=== PATIENT | male | born 1960 | race African-American/Black ===

== ENCOUNTER 2021-12-15 19:00 | Observation (INO) | payer OTHER ==
[2021-12-15 19:39] VITALS: BMI 23.0
[2021-12-15 20:29] LABS: BASO % 0.1 % (0-2.0); HEMATOCRIT 40.6 % (35.4-49); HEMOGLOBIN 13.3 GM/dL (11.7-16.9); LYMPH % 22.4 % (8-40); MCH 32.4 pg (25.7-33.7); MCHC 32.8 g/dl (32.0-35.9); MEAN CELL VOLUME 98.5 fl (80-96); MEAN PLT VOLUME 9.7 fl (7.5-11.1); NEUT % 67.5 % (42.8-82.8); PLATELET COUNT 165 10^3/uL (134-434); RBC 4.12 M/mm3 (4.00-5.60); RDW 14.9 % (11.9-15.9); WHITE BLOOD COUNT 7.3 K/mm3 (4.0-10.0)
[2021-12-15 20:50] LABS: CALCIUM 9.5 mg/dL (8.5-10.1)
[2021-12-15 20:51] LABS: ALBUMIN 3.9 g/dl (3.4-5.0); BLOOD UREA NITROGEN 21.4 mg/dL (7-18)
[2021-12-15 20:54] LABS: CREATININE 1.3 mg/dL (0.55-1.3)
[2021-12-15 20:55] LABS: TOT PROT 7.1 g/dl (6.4-8.2)
[2021-12-15 20:56] LABS: BILIRUBIN,TOTAL 0.2 mg/dL (0.2-1)
[2021-12-15] MEDS ORDERED: ACETAMINOPHEN 650 MG/20.3 ML ORAL SOLUTION (CUPS) PO STA (23:06)
[2021-12-15] MEDS ORDERED: ACETAMINOPHEN 650 MG/20.3 ML ORAL SOLUTION (CUPS) ONE (23:24)
[2021-12-16] MEDS ORDERED: ACETAMINOPHEN 325 MG TABLET (FP) PO ONE (09:27)
[2021-12-16] MEDS ORDERED: ACETAMINOPHEN 325 MG TABLET (FP) ONE ×2 (09:27→19:27)
[2021-12-16] MEDS: ENOXAPARIN NA (PORCINE) 40 MG/0.4 ML DISP.SYRIN SQ SCH (10:00)
[2021-12-16] MEDS ORDERED: ENOXAPARIN NA (PORCINE) 40 MG/0.4 ML DISP.SYRIN SQ ONE (10:12)
[2021-12-16 10:35] LABS: BASO % 0.5 % (0-2.0); EOS % 0.9 % (0-4.5); HEMATOCRIT 40.6 % (35.4-49); HEMOGLOBIN 13.1 GM/dL (11.7-16.9); LYMPH % 19.5 % (8-40); MCH 31.6 pg (25.7-33.7); MCHC 32.2 g/dl (32.0-35.9); MEAN CELL VOLUME 98.1 fl (80-96); MEAN PLT VOLUME 10.4 fl (7.5-11.1); MONO % 9.4 % (3.8-10.2); NEUT % 69.7 % (42.8-82.8); PLATELET COUNT 172 10^3/uL (134-434); RBC 4.14 M/mm3 (4.00-5.60); WHITE BLOOD COUNT 5.5 K/mm3 (4.0-10.0)
[2021-12-16 11:10] LABS: CALCIUM 9.6 mg/dL (8.5-10.1)
[2021-12-16 11:11] LABS: ALBUMIN 3.8 g/dl (3.4-5.0); BLOOD UREA NITROGEN 20.9 mg/dL (7-18)
[2021-12-16 11:14] LABS: CREATININE 1.1 mg/dL (0.55-1.3)
[2021-12-16 11:15] LABS: TOT PROT 6.9 g/dl (6.4-8.2)
[2021-12-16 11:16] LABS: BILIRUBIN,TOTAL 0.3 mg/dL (0.2-1)
[2021-12-16] MEDS: ACETAMINOPHEN 325 MG TABLET (FP) PO PRN (19:35)
[2021-12-17] MEDS ORDERED: ACETAMINOPHEN 325 MG TABLET (FP) ONE ×2 (03:03→09:39)
[2021-12-17] MEDS: ACETAMINOPHEN 325 MG TABLET (FP) PO PRN ×3 (03:07→22:24)
[2021-12-17] MEDS ORDERED: LOSARTAN POTASSIUM 50 MG TABLET PO ONE (08:19)
[2021-12-17] MEDS ORDERED: LOSARTAN POTASSIUM 50 MG TABLET ONE (09:39)
[2021-12-17] MEDS ORDERED: ENOXAPARIN NA (PORCINE) 40 MG/0.4 ML DISP.SYRIN SQ ONE (09:42)
[2021-12-17] MEDS: ENOXAPARIN NA (PORCINE) 40 MG/0.4 ML DISP.SYRIN SQ SCH (09:47)
[2021-12-18] MEDS: ACETAMINOPHEN 325 MG TABLET (FP) PO PRN ×2 (06:44→20:45)
[2021-12-18] MEDS: ENOXAPARIN NA (PORCINE) 40 MG/0.4 ML DISP.SYRIN SQ SCH (09:23)
[2021-12-18] MEDS ORDERED: LIDOCAINE 5% TOPICAL PATCH TP ONE (14:45)
[2021-12-18] MEDS: INSULIN SLIDING SCALE (NOVOLOG) 1 VIAL SQ SCH (16:42)
[2021-12-19] MEDS: ACETAMINOPHEN 325 MG TABLET (FP) PO PRN ×2 (05:39→20:06)
[2021-12-19] MEDS: metFORMIN HCL 500 MG TABLET (FP) PO SCH (06:08)
[2021-12-19 07:31] LABS: BASO % 0.7 % (0-2.0); EOS % 2.9 % (0-4.5); HEMATOCRIT 41.1 % (35.4-49); HEMOGLOBIN 13.8 GM/dL (11.7-16.9); LYMPH % 29.3 % (8-40); MCH 32.7 pg (25.7-33.7); MCHC 33.5 g/dl (32.0-35.9); MEAN CELL VOLUME 97.3 fl (80-96); MEAN PLT VOLUME 10.3 fl (7.5-11.1); MONO % 11.4 % (3.8-10.2); NEUT % 55.7 % (42.8-82.8); PLATELET COUNT 155 10^3/uL (134-434); RBC 4.22 M/mm3 (4.00-5.60); RDW 14.9 % (11.9-15.9); WHITE BLOOD COUNT 4.2 K/mm3 (4.0-10.0)
[2021-12-19] MEDS: INSULIN SLIDING SCALE (NOVOLOG) 1 VIAL SQ SCH ×2 (07:37→18:12)
[2021-12-19 08:01] LABS: CALCIUM 9.1 mg/dL (8.5-10.1)
[2021-12-19 08:02] LABS: ALBUMIN 3.5 g/dl (3.4-5.0); BLOOD UREA NITROGEN 17.4 mg/dL (7-18)
[2021-12-19 08:05] LABS: CREATININE 0.9 mg/dL (0.55-1.3)
[2021-12-19 08:08] LABS: BILIRUBIN,TOTAL 0.3 mg/dL (0.2-1); TOT PROT 6.8 g/dl (6.4-8.2)
[2021-12-19] MEDS: ENOXAPARIN NA (PORCINE) 40 MG/0.4 ML DISP.SYRIN SQ SCH (09:40)
[2021-12-19] MEDS: TAMSULOSIN HCL 0.4 MG CAP PO SCH (09:40)
[2021-12-19] MEDS: LOSARTAN POTASSIUM 50 MG TABLET PO SCH (09:40)
[2021-12-19] MEDS: HYDROCHLOROTHIAZIDE 25 MG TABLET (FP) PO SCH (09:40)
[2021-12-20] MEDS: metFORMIN HCL 500 MG TABLET (FP) PO SCH (06:44)
[2021-12-20] MEDS: INSULIN SLIDING SCALE (NOVOLOG) 1 VIAL SQ SCH ×2 (07:33→17:09)
[2021-12-20] MEDS: HYDROCHLOROTHIAZIDE 25 MG TABLET (FP) PO SCH (09:07)
[2021-12-20] MEDS: LOSARTAN POTASSIUM 50 MG TABLET PO SCH (09:07)
[2021-12-20] MEDS: TAMSULOSIN HCL 0.4 MG CAP PO SCH (09:07)
[2021-12-20] MEDS: ENOXAPARIN NA (PORCINE) 40 MG/0.4 ML DISP.SYRIN SQ SCH (09:07)
[2021-12-20] MEDS: ACETAMINOPHEN 325 MG TABLET (FP) PO PRN ×2 (12:45→18:39)
[2021-12-21 04:17] VITALS: TEMP 98.4
[2021-12-21] MEDS: INSULIN SLIDING SCALE (NOVOLOG) 1 VIAL SQ SCH (06:37)
[2021-12-21] MEDS: metFORMIN HCL 500 MG TABLET (FP) PO SCH (06:42)
[2021-12-21 08:24] VITALS: BP 136/89; PULSE 79
[2021-12-21] MEDS: LOSARTAN POTASSIUM 50 MG TABLET PO SCH (09:03)
[2021-12-21] MEDS: HYDROCHLOROTHIAZIDE 25 MG TABLET (FP) PO SCH (09:03)
[2021-12-21] MEDS: TAMSULOSIN HCL 0.4 MG CAP PO SCH (09:04)
[2021-12-21] MEDS: ENOXAPARIN NA (PORCINE) 40 MG/0.4 ML DISP.SYRIN SQ SCH (09:05)
== END 2021-12-21 10:07 | disposition home or self-care (01) ==
LOC: JER 19:00 → JERBED 21:36 → INTOOBSV 21:36 → UNDOADMOB 21:36 → JERBED 12-17 10:21 → J4W 12-17 15:57
PROVIDERS: ADMIT Internal Medicine; ATTEND Internal Medicine
PROC: 3E023GC Introduction of Other Therapeutic Substance into Muscle, Percutaneous Approach (ICD-10-PCS; principal; 2021-12-17)
DX: R55 Syncope and collapse (principal); W18.39XA Other fall on same level, initial encounter; Y93.89 Activity, other specified; Y92.89 Other specified places as the place of occurrence of the external cause; E11.9 Type 2 diabetes mellitus without complications; N40.0 Benign prostatic hyperplasia without lower urinary tract symptoms; I10 Essential (primary) hypertension
CPT/HCPCS: 36415; 70450-TC; 70498-TC; 70547-TC; 72125-TC; 80053; 80061; 80307; 82550; 82553; 82962; 83036; 83735; 84484; 85025; 93005; 93010; 93225; 93226; 93306-TC; 93880-TC; 96372; 99285-25; C9803; G0378; U0003; U0005

== ENCOUNTER 2023-01-13 11:33 | Inpatient (IN) | payer OTHER ==
[2023-01-13 13:58] LABS: BASO % 0.9 % (0-2.0); EOS % 0.6 % (0-4.5); HEMATOCRIT 36.7 % (35.4-49); HEMOGLOBIN 12.1 GM/dL (11.7-16.9); LYMPH % 11.9 % (8-40); MCH 30.9 pg (25.7-33.7); MCHC 32.9 g/dl (32.0-35.9); MEAN CELL VOLUME 93.9 fl (80-96); MEAN PLT VOLUME 10.6 fl (7.5-11.1); NEUT % 75.6 % (42.8-82.8); PLATELET COUNT 319 10^3/uL (134-434); RBC 3.91 M/mm3 (4.00-5.60); RDW 16.7 % (11.9-15.9); WHITE BLOOD COUNT 6.4 K/mm3 (4.0-10.0)
[2023-01-13 14:08] LABS: INR 1.14 (0.83-1.09); PROTHROMBIN TIME (PATIENT) 13.2 SEC (9.7-13.0)
[2023-01-13 14:24] LABS: SODIUM 128 mmol/L (136-145)
[2023-01-13 14:26] LABS: ALBUMIN 2.8 g/dl (3.4-5.0); CALCIUM 8.9 mg/dL (8.5-10.1); CO2 25 mmol/L (21-32); GLUCOSE,RANDOM 137 mg/dL (74-106)
[2023-01-13 14:27] LABS: LIPASE 109 U/L (73-393)
[2023-01-13 14:30] LABS: CREATININE 0.9 mg/dL (0.55-1.3)
[2023-01-13 14:31] LABS: BILIRUBIN,TOTAL 3.4 mg/dL (0.2-1)
[2023-01-13 14:33] LABS: ALK PHOS 980 U/L (45-117)
[2023-01-13 14:35] LABS: N-TERMINAL BNP 605.5 pg/ml (5-125)
[2023-01-13 14:40] LABS: ANION GAP 7 MMOL/L (8-16); BLOOD UREA NITROGEN 16.3 mg/dL (7-18); CHLORIDE 96 mmol/L (98-107); SGOT/AST 144 U/L (15-37); SGPT/ALT 26 U/L (13-61)
[2023-01-13 19:42] LABS: CHLORIDE 99 mmol/L (98-107); SODIUM 132 mmol/L (136-145)
[2023-01-13 19:44] LABS: ALBUMIN 2.7 g/dl (3.4-5.0); BLOOD UREA NITROGEN 14.2 mg/dL (7-18); CALCIUM 8.9 mg/dL (8.5-10.1); CO2 22 mmol/L (21-32); GLUCOSE,RANDOM 84 mg/dL (74-106)
[2023-01-13 19:48] LABS: CREATININE 0.8 mg/dL (0.55-1.3); SGOT/AST 132 U/L (15-37)
[2023-01-13 19:50] LABS: TOT PROT 6.7 g/dl (6.4-8.2)
[2023-01-13 19:54] LABS: ALK PHOS 930 U/L (45-117); ANION GAP 11 MMOL/L (8-16); SGPT/ALT 22 U/L (13-61)
[2023-01-13] MEDS ORDERED: morphine CARPU-JECT 2 MG/1 ML DISP.SYRIN IVPUSH ONE (21:09)
[2023-01-13] MEDS ORDERED: ONDANSETRON 4 MG TABLET PO ONE (21:16)
[2023-01-14] MEDS ORDERED: DEXTROSE 5%-0.45% SALINE 1,000 ML IV SCH (10:00)
[2023-01-14] MEDS: TAMSULOSIN HCL 0.4 MG CAP PO SCH (11:26)
[2023-01-14] MEDS: ENOXAPARIN NA (PORCINE) 40 MG/0.4 ML DISP.SYRIN SQ SCH (11:26)
[2023-01-14] MEDS: ASPIRIN COATED 81 MG TABLET.EC PO SCH (11:27)
[2023-01-14] MEDS: INSULIN SLIDING SCALE (NOVOLOG) 1 VIAL SQ SCH ×3 (12:14→23:02)
[2023-01-14 12:37] LABS: BASO % 0.3 % (0-2.0); EOS % 0.5 % (0-4.5); HEMATOCRIT 36.5 % (35.4-49); HEMOGLOBIN 12.1 GM/dL (11.7-16.9); LYMPH % 8.2 % (8-40); MCH 31.4 pg (25.7-33.7); MCHC 33.3 g/dl (32.0-35.9); MEAN CELL VOLUME 94.2 fl (80-96); MEAN PLT VOLUME 9.7 fl (7.5-11.1); MONO % 10.8 % (3.8-10.2); NEUT % 80.2 % (42.8-82.8); PLATELET COUNT 307 10^3/uL (134-434); RBC 3.87 M/mm3 (4.00-5.60); RDW 16.6 % (11.9-15.9)
[2023-01-14 13:00] LABS: ALBUMIN 2.8 g/dl (3.4-5.0); BLOOD UREA NITROGEN 14.8 mg/dL (7-18); CALCIUM 9.4 mg/dL (8.5-10.1)
[2023-01-14 13:04] LABS: CREATININE 0.7 mg/dL (0.55-1.3)
[2023-01-14 13:06] LABS: BILIRUBIN,TOTAL 3.4 mg/dL (0.2-1); TOT PROT 6.2 g/dl (6.4-8.2)
[2023-01-14] MEDS: DEXTROSE 5%-NORMAL SALINE 1,000 ML IV SCH (14:00)
[2023-01-15] MEDS: DEXTROSE 5%-NORMAL SALINE 1,000 ML IV SCH ×2 (00:16→17:47)
[2023-01-15] MEDS: ACETAMINOPHEN 325 MG TABLET (FP) PO PRN ×2 (00:18→09:56)
[2023-01-15] MEDS: INSULIN SLIDING SCALE (NOVOLOG) 1 VIAL SQ SCH ×3 (06:59→17:48)
[2023-01-15 09:48] LABS: BASO % 0.5 % (0-2.0); EOS % 1.5 % (0-4.5); HEMATOCRIT 35.1 % (35.4-49); HEMOGLOBIN 11.4 GM/dL (11.7-16.9); LYMPH % 15.9 % (8-40); MCH 30.8 pg (25.7-33.7); MCHC 32.6 g/dl (32.0-35.9); MEAN CELL VOLUME 94.5 fl (80-96); MEAN PLT VOLUME 10.4 fl (7.5-11.1); MONO % 16.3 % (3.8-10.2); NEUT % 65.8 % (42.8-82.8); PLATELET COUNT 319 10^3/uL (134-434); RBC 3.71 M/mm3 (4.00-5.60); RDW 16.7 % (11.9-15.9); WHITE BLOOD COUNT 6.4 K/mm3 (4.0-10.0)
[2023-01-15] MEDS: TAMSULOSIN HCL 0.4 MG CAP PO SCH (09:57)
[2023-01-15] MEDS: ASPIRIN COATED 81 MG TABLET.EC PO SCH (09:57)
[2023-01-15] MEDS: ENOXAPARIN NA (PORCINE) 40 MG/0.4 ML DISP.SYRIN SQ SCH (09:57)
[2023-01-15 10:15] LABS: BLOOD UREA NITROGEN 10.8 mg/dL (7-18); CALCIUM 8.8 mg/dL (8.5-10.1)
[2023-01-15 10:17] LABS: ALBUMIN 2.4 g/dl (3.4-5.0)
[2023-01-15 10:20] LABS: BILIRUBIN,TOTAL 3.3 mg/dL (0.2-1); CREATININE 0.7 mg/dL (0.55-1.3); TOT PROT 5.5 g/dl (6.4-8.2)
[2023-01-15] MEDS: [UNRECOGNIZED DRUG - OTHER] PO SCH (11:58)
[2023-01-16] MEDS: INSULIN SLIDING SCALE (NOVOLOG) 1 VIAL SQ SCH ×5 (00:12→21:39)
[2023-01-16] MEDS: DEXTROSE 5%-NORMAL SALINE 1,000 ML IV SCH ×2 (00:16→16:29)
[2023-01-16 09:08] LABS: HEMATOCRIT 35.2 % (35.4-49); HEMOGLOBIN 11.4 GM/dL (11.7-16.9); MCH 30.9 pg (25.7-33.7); MCHC 32.5 g/dl (32.0-35.9); MEAN CELL VOLUME 95.2 fl (80-96); MEAN PLT VOLUME 10.6 fl (7.5-11.1); PLATELET COUNT 319 10^3/uL (134-434); RDW 16.5 % (11.9-15.9); WHITE BLOOD COUNT 5.8 K/mm3 (4.0-10.0)
[2023-01-16] MEDS: ALBUMIN HUMAN 25% 12.5 GM/50 ML VIAL IV SCH ×4 (09:29→11:25)
[2023-01-16 09:32] LABS: CALCIUM 8.6 mg/dL (8.5-10.1)
[2023-01-16 09:34] LABS: ALBUMIN 2.3 g/dl (3.4-5.0); BLOOD UREA NITROGEN 9.6 mg/dL (7-18)
[2023-01-16] MEDS: ACETAMINOPHEN 325 MG TABLET (FP) PO PRN (09:36)
[2023-01-16] MEDS: TAMSULOSIN HCL 0.4 MG CAP PO SCH (09:36)
[2023-01-16] MEDS: [UNRECOGNIZED DRUG - OTHER] PO SCH (09:36)
[2023-01-16 09:37] LABS: CREATININE 0.6 mg/dL (0.55-1.3)
[2023-01-16 09:38] LABS: TOT PROT 5.6 g/dl (6.4-8.2)
[2023-01-16] MEDS: ASPIRIN COATED 81 MG TABLET.EC PO SCH (10:43)
[2023-01-16] MEDS: ENOXAPARIN NA (PORCINE) 40 MG/0.4 ML DISP.SYRIN SQ SCH (10:44)
[2023-01-16] MEDS: POLYETHYLENE GLYCOL (HEALTHYLAX) 3350 17 GM PACKET PO SCH (21:39)
[2023-01-17] MEDS: DEXTROSE 5%-NORMAL SALINE 1,000 ML IV SCH ×2 (00:55→17:58)
[2023-01-17] MEDS: ACETAMINOPHEN 325 MG TABLET (FP) PO PRN ×3 (02:55→22:27)
[2023-01-17] MEDS: INSULIN SLIDING SCALE (NOVOLOG) 1 VIAL SQ SCH ×4 (06:05→22:22)
[2023-01-17 08:45] LABS: BASO % 0.9 % (0-2.0); EOS % 2.8 % (0-4.5); HEMATOCRIT 34.1 % (35.4-49); HEMOGLOBIN 11.2 GM/dL (11.7-16.9); LYMPH % 16.6 % (8-40); MCH 31.2 pg (25.7-33.7); MEAN CELL VOLUME 94.4 fl (80-96); MEAN PLT VOLUME 10.4 fl (7.5-11.1); MONO % 14.4 % (3.8-10.2); NEUT % 65.3 % (42.8-82.8); PLATELET COUNT 320 10^3/uL (134-434); RBC 3.61 M/mm3 (4.00-5.60); RDW 16.8 % (11.9-15.9); WHITE BLOOD COUNT 6.1 K/mm3 (4.0-10.0)
[2023-01-17 09:12] LABS: ALBUMIN 2.8 g/dl (3.4-5.0); BLOOD UREA NITROGEN 8.5 mg/dL (7-18); CALCIUM 9.2 mg/dL (8.5-10.1); CREATININE 0.6 mg/dL (0.55-1.3)
[2023-01-17 09:14] LABS: TOT PROT 5.7 g/dl (6.4-8.2)
[2023-01-17 09:20] LABS: BILIRUBIN,TOTAL 3.3 mg/dL (0.2-1)
[2023-01-17] MEDS: LACTULOSE 20 GM/30 ML UDC (FOR ORAL USE ONLY) PO SCH (10:43)
[2023-01-17] MEDS: ASPIRIN COATED 81 MG TABLET.EC PO SCH (10:44)
[2023-01-17] MEDS: ENOXAPARIN NA (PORCINE) 40 MG/0.4 ML DISP.SYRIN SQ SCH (10:44)
[2023-01-17] MEDS: POLYETHYLENE GLYCOL (HEALTHYLAX) 3350 17 GM PACKET PO SCH ×2 (10:44→22:18)
[2023-01-17] MEDS: TAMSULOSIN HCL 0.4 MG CAP PO SCH (10:44)
[2023-01-17] MEDS: [UNRECOGNIZED DRUG - OTHER] PO SCH (10:46)
[2023-01-17 13:47] VITALS: BMI 23.7
[2023-01-18] MEDS: INSULIN SLIDING SCALE (NOVOLOG) 1 VIAL SQ SCH ×4 (06:12→21:47)
[2023-01-18] MEDS: LACTULOSE 20 GM/30 ML UDC (FOR ORAL USE ONLY) PO SCH (13:37)
[2023-01-18] MEDS: ENOXAPARIN NA (PORCINE) 40 MG/0.4 ML DISP.SYRIN SQ SCH (13:37)
[2023-01-18] MEDS: ASPIRIN COATED 81 MG TABLET.EC PO SCH (13:37)
[2023-01-18] MEDS: TAMSULOSIN HCL 0.4 MG CAP PO SCH (13:37)
[2023-01-18] MEDS: [UNRECOGNIZED DRUG - OTHER] PO SCH (13:38)
[2023-01-18] MEDS: POLYETHYLENE GLYCOL (HEALTHYLAX) 3350 17 GM PACKET PO SCH ×2 (13:38→21:37)
[2023-01-18] MEDS: ACETAMINOPHEN 325 MG TABLET (FP) PO PRN (13:47)
[2023-01-18] MEDS: DEXTROSE 5%-NORMAL SALINE 1,000 ML IV SCH ×2 (15:35→20:33)
[2023-01-19] MEDS: INSULIN SLIDING SCALE (NOVOLOG) 1 VIAL SQ SCH ×4 (06:01→22:19)
[2023-01-19 08:01] LABS: BASO % 0.7 % (0-2.0); EOS % 1.2 % (0-4.5); HEMATOCRIT 36.4 % (35.4-49); LYMPH % 15.8 % (8-40); MCH 31.4 pg (25.7-33.7); MEAN CELL VOLUME 95.1 fl (80-96); MEAN PLT VOLUME 10.7 fl (7.5-11.1); MONO % 12.6 % (3.8-10.2); NEUT % 69.7 % (42.8-82.8); PLATELET COUNT 307 10^3/uL (134-434); RBC 3.83 M/mm3 (4.00-5.60); RDW 16.8 % (11.9-15.9)
[2023-01-19 08:22] LABS: CALCIUM 9.2 mg/dL (8.5-10.1)
[2023-01-19 08:23] LABS: ALBUMIN 2.8 g/dl (3.4-5.0); BLOOD UREA NITROGEN 7.7 mg/dL (7-18)
[2023-01-19 08:27] LABS: BILIRUBIN,TOTAL 3.1 mg/dL (0.2-1); CREATININE 0.6 mg/dL (0.55-1.3); TOT PROT 5.9 g/dl (6.4-8.2)
[2023-01-19] MEDS: ACETAMINOPHEN 325 MG TABLET (FP) PO PRN ×2 (08:58→20:09)
[2023-01-19] MEDS: TAMSULOSIN HCL 0.4 MG CAP PO SCH (08:59)
[2023-01-19] MEDS: ENOXAPARIN NA (PORCINE) 40 MG/0.4 ML DISP.SYRIN SQ SCH (09:01)
[2023-01-19] MEDS: POLYETHYLENE GLYCOL (HEALTHYLAX) 3350 17 GM PACKET PO SCH ×2 (09:01→22:19)
[2023-01-19] MEDS: ASPIRIN COATED 81 MG TABLET.EC PO SCH (09:01)
[2023-01-19] MEDS: LACTULOSE 20 GM/30 ML UDC (FOR ORAL USE ONLY) PO SCH (09:01)
[2023-01-19] MEDS: [UNRECOGNIZED DRUG - OTHER] PO SCH (09:02)
[2023-01-19] MEDS: PANTOPRAZOLE 40 MG TABLET PO SCH (10:22)
[2023-01-19] MEDS: SPIRONOLACTONE 25 MG TABLET PO SCH (16:51)
[2023-01-20] MEDS: INSULIN SLIDING SCALE (NOVOLOG) 1 VIAL SQ SCH ×4 (06:43→21:35)
[2023-01-20 09:59] LABS: BASO % 0.5 % (0-2.0); EOS % 1.3 % (0-4.5); HEMATOCRIT 33.2 % (35.4-49); HEMOGLOBIN 10.8 GM/dL (11.7-16.9); MCH 30.5 pg (25.7-33.7); MCHC 32.4 g/dl (32.0-35.9); MEAN CELL VOLUME 94.1 fl (80-96); MEAN PLT VOLUME 10.9 fl (7.5-11.1); MONO % 13.6 % (3.8-10.2); NEUT % 69.6 % (42.8-82.8); PLATELET COUNT 303 10^3/uL (134-434); RBC 3.53 M/mm3 (4.00-5.60); RDW 16.8 % (11.9-15.9); WHITE BLOOD COUNT 7.8 K/mm3 (4.0-10.0)
[2023-01-20] MEDS ORDERED: SPIRONOLACTONE 25 MG TABLET PO SCH (10:00)
[2023-01-20] MEDS: POLYETHYLENE GLYCOL (HEALTHYLAX) 3350 17 GM PACKET PO SCH ×2 (10:05→21:27)
[2023-01-20] MEDS: ASPIRIN COATED 81 MG TABLET.EC PO SCH (10:05)
[2023-01-20] MEDS: ENOXAPARIN NA (PORCINE) 40 MG/0.4 ML DISP.SYRIN SQ SCH (10:05)
[2023-01-20] MEDS: LACTULOSE 20 GM/30 ML UDC (FOR ORAL USE ONLY) PO SCH (10:05)
[2023-01-20] MEDS: SPIRONOLACTONE 25 MG TABLET PO SCH (10:05)
[2023-01-20] MEDS: PANTOPRAZOLE 40 MG TABLET PO SCH (10:05)
[2023-01-20] MEDS: TAMSULOSIN HCL 0.4 MG CAP PO SCH (10:05)
[2023-01-20] MEDS: [UNRECOGNIZED DRUG - OTHER] PO SCH (10:07)
[2023-01-20] MEDS: ACETAMINOPHEN 325 MG TABLET (FP) PO PRN ×2 (10:11→19:59)
[2023-01-20 10:14] LABS: CALCIUM 9.3 mg/dL (8.5-10.1)
[2023-01-20 10:15] LABS: ALBUMIN 2.6 g/dl (3.4-5.0); BLOOD UREA NITROGEN 11.2 mg/dL (7-18)
[2023-01-20 10:18] LABS: CREATININE 0.5 mg/dL (0.55-1.3)
[2023-01-20 10:19] LABS: TOT PROT 5.6 g/dl (6.4-8.2)
[2023-01-20 10:20] LABS: BILIRUBIN,TOTAL 3.3 mg/dL (0.2-1)
[2023-01-20] MEDS ORDERED: BISACODYL 5 MG TABLET.DR (FP) PO ONE (14:00)
[2023-01-20] MEDS ORDERED: POLYETHYLENE GLYCOL 3350 255 GM BTL PO ONE (16:00)
[2023-01-21] MEDS: ACETAMINOPHEN 325 MG TABLET (FP) PO PRN ×3 (06:00→22:22)
[2023-01-21] MEDS: INSULIN SLIDING SCALE (NOVOLOG) 1 VIAL SQ SCH ×4 (06:03→22:24)
[2023-01-21] MEDS: LACTULOSE 20 GM/30 ML UDC (FOR ORAL USE ONLY) PO SCH (09:22)
[2023-01-21] MEDS: SPIRONOLACTONE 25 MG TABLET PO SCH (09:22)
[2023-01-21] MEDS: ASPIRIN COATED 81 MG TABLET.EC PO SCH (09:22)
[2023-01-21] MEDS: TAMSULOSIN HCL 0.4 MG CAP PO SCH (09:22)
[2023-01-21] MEDS: PANTOPRAZOLE 40 MG TABLET PO SCH (09:22)
[2023-01-21] MEDS: POLYETHYLENE GLYCOL (HEALTHYLAX) 3350 17 GM PACKET PO SCH ×2 (09:27→22:21)
[2023-01-21] MEDS: [UNRECOGNIZED DRUG - OTHER] PO SCH (09:28)
[2023-01-21] MEDS ORDERED: SODIUM PHOSPHATE/NA BIPHOS 133 ML ENEMA RC ONE (10:00)
[2023-01-21] MEDS ORDERED: TETRACAINE/BENZOCAINE/BUTAMBEN 20 GM SPR TP ONE (12:11)
[2023-01-22] MEDS: INSULIN SLIDING SCALE (NOVOLOG) 1 VIAL SQ SCH ×4 (06:34→22:02)
[2023-01-22 08:05] LABS: ALBUMIN 2.6 g/dl (3.4-5.0); CALCIUM 9.6 mg/dL (8.5-10.1)
[2023-01-22 08:06] LABS: BLOOD UREA NITROGEN 10.9 mg/dL (7-18)
[2023-01-22 08:09] LABS: CREATININE 0.6 mg/dL (0.55-1.3)
[2023-01-22 08:10] LABS: TOT PROT 5.8 g/dl (6.4-8.2)
[2023-01-22 08:11] LABS: BILIRUBIN,TOTAL 3.5 mg/dL (0.2-1)
[2023-01-22 08:26] LABS: HEMATOCRIT 33.5 % (35.4-49); HEMOGLOBIN 11.1 GM/dL (11.7-16.9); MCH 31.1 pg (25.7-33.7); MCHC 33.1 g/dl (32.0-35.9); MEAN PLT VOLUME 10.6 fl (7.5-11.1); PLATELET COUNT 295 10^3/uL (134-434); RBC 3.56 M/mm3 (4.00-5.60); WHITE BLOOD COUNT 6.3 K/mm3 (4.0-10.0)
[2023-01-22] MEDS: PANTOPRAZOLE 40 MG TABLET PO SCH (09:58)
[2023-01-22] MEDS: TAMSULOSIN HCL 0.4 MG CAP PO SCH (09:58)
[2023-01-22] MEDS: ACETAMINOPHEN 325 MG TABLET (FP) PO PRN ×3 (09:58→22:45)
[2023-01-22] MEDS: SPIRONOLACTONE 25 MG TABLET PO SCH (09:58)
[2023-01-22] MEDS: ASPIRIN COATED 81 MG TABLET.EC PO SCH (09:58)
[2023-01-22] MEDS: LACTULOSE 20 GM/30 ML UDC (FOR ORAL USE ONLY) PO SCH (09:59)
[2023-01-22] MEDS: POLYETHYLENE GLYCOL (HEALTHYLAX) 3350 17 GM PACKET PO SCH ×3 (09:59→21:29)
[2023-01-22] MEDS: [UNRECOGNIZED DRUG - OTHER] PO SCH (10:00)
[2023-01-22] MEDS: ALBUMIN HUMAN 25% 12.5 GM/50 ML VIAL IV SCH ×4 (13:11→15:06)
[2023-01-23] MEDS ORDERED: INSULIN (NOVOLOG) ASPART 100 UNITS/ML 10ML VIAL ONE (06:38)
[2023-01-23] MEDS: INSULIN SLIDING SCALE (NOVOLOG) 1 VIAL SQ SCH ×4 (06:42→23:17)
[2023-01-23] MEDS: LACTULOSE 20 GM/30 ML UDC (FOR ORAL USE ONLY) PO SCH (09:05)
[2023-01-23] MEDS: TAMSULOSIN HCL 0.4 MG CAP PO SCH (09:06)
[2023-01-23] MEDS: SPIRONOLACTONE 25 MG TABLET PO SCH (09:06)
[2023-01-23] MEDS: PANTOPRAZOLE 40 MG TABLET PO SCH (09:06)
[2023-01-23] MEDS: ASPIRIN COATED 81 MG TABLET.EC PO SCH (09:07)
[2023-01-23] MEDS: ACETAMINOPHEN 325 MG TABLET (FP) PO PRN ×2 (09:13→22:36)
[2023-01-23] MEDS: ALBUMIN HUMAN 25% 12.5 GM/50 ML VIAL IV SCH ×3 (09:23→12:01)
[2023-01-23 10:08] LABS: ALBUMIN 2.9 g/dl (3.4-5.0); BLOOD UREA NITROGEN 9.3 mg/dL (7-18); CALCIUM 10.2 mg/dL (8.5-10.1)
[2023-01-23 10:12] LABS: CREATININE 0.5 mg/dL (0.55-1.3)
[2023-01-23 10:14] LABS: BILIRUBIN,TOTAL 3.4 mg/dL (0.2-1); TOT PROT 6.4 g/dl (6.4-8.2)
[2023-01-23] MEDS: POLYETHYLENE GLYCOL (HEALTHYLAX) 3350 17 GM PACKET PO SCH ×2 (12:03→22:37)
[2023-01-23] MEDS: [UNRECOGNIZED DRUG - OTHER] PO SCH (12:03)
[2023-01-23 17:05] LABS: BF WBC & OTHER NUCLEATED CELLS 347 /mm3
[2023-01-23 17:13] LABS: BODY FLUID MACROPHAGES 3 %; BODY FLUID MESOTHELIAL 1 %; BODY FLUID MONOCYTE 58 %
[2023-01-24] MEDS: ACETAMINOPHEN 325 MG TABLET (FP) PO PRN (09:21)
[2023-01-24] MEDS: ASPIRIN COATED 81 MG TABLET.EC PO SCH (09:22)
[2023-01-24] MEDS: POLYETHYLENE GLYCOL (HEALTHYLAX) 3350 17 GM PACKET PO SCH (09:22)
[2023-01-24] MEDS: LACTULOSE 20 GM/30 ML UDC (FOR ORAL USE ONLY) PO SCH (09:22)
[2023-01-24] MEDS: PANTOPRAZOLE 40 MG TABLET PO SCH (09:22)
[2023-01-24] MEDS: SPIRONOLACTONE 25 MG TABLET PO SCH (09:22)
[2023-01-24] MEDS: TAMSULOSIN HCL 0.4 MG CAP PO SCH (09:22)
[2023-01-24] MEDS: [UNRECOGNIZED DRUG - OTHER] PO SCH (09:40)
[2023-01-24 14:26] VITALS: BP 138/83; PULSE 93; RESP 20; TEMP 98
== END 2023-01-24 16:36 | disposition home or self-care (01) | DRG 281 ==
LOC: JER 11:33 → EDBD 19:00 → JERBED 19:00 → J8W 01-14 00:19
PROVIDERS: ADMIT Internal Medicine; ATTEND Internal Medicine
PROC: 0DBP8ZX Excision of Rectum, Via Natural or Artificial Opening Endoscopic, Diagnostic (ICD-10-PCS; 2023-01-21)
PROC: 0DB68ZX Excision of Stomach, Via Natural or Artificial Opening Endoscopic, Diagnostic (ICD-10-PCS; 2023-01-21)
PROC: 0W9G3ZZ Drainage of Peritoneal Cavity, Percutaneous Approach (ICD-10-PCS; principal; 2023-01-23)
DX: C78.7 Secondary malignant neoplasm of liver and intrahepatic bile duct (principal); C79.51 Secondary malignant neoplasm of bone; R18.8 Other ascites; E87.1 Hypo-osmolality and hyponatremia; E87.5 Hyperkalemia; R17 Unspecified jaundice; C61 Malignant neoplasm of prostate; E11.9 Type 2 diabetes mellitus without complications; I10 Essential (primary) hypertension; K59.00 Constipation, unspecified; B96.81 Helicobacter pylori [H. pylori] as the cause of diseases classified elsewhere; K29.50 Unspecified chronic gastritis without bleeding; K57.90 Diverticulosis of intestine, part unspecified, without perforation or abscess without bleeding; K62.1 Rectal polyp
CPT/HCPCS: 0241U-QW; 36415; 74177-TC; 76604; 76705-TC; 76775-TC; 76856-TC; 76942-TC; 80053; 82105; 82140; 82150; 82272; 82378; 82465; 82945; 82962; 83615; 83690; 83880; 83986; 84153; 84157; 84478; 85025; 85027; 85610; 85730; 86705; 86709; 86803; 87070; 87075; 87102; 87116; 87205; 87206; 87210; 87340; 87517; 88108; 88305-TC; 93005; 93010; 93308; 99285-25; P9047; Q9967

== ENCOUNTER 2023-02-22 16:50 | Inpatient (IN) | payer OTHER ==
[2023-02-22] MEDS ORDERED: LIDOCAINE HCL 1%, 10 MG/ML (10ML VIAL) MDV ONE (18:10)
[2023-02-22 18:35] LABS: VENOUS BASE EXCESS -1.1 mmol/L (-2-2); VENOUS O2 SATURATION 66.7 % (70-80); VENOUS PH 7.405 (7.310-7.410)
[2023-02-22] MEDS ORDERED: CEFTRIAXONE 1,000 MG in DEXTROSE 5%-WATER - 50 ML IVPB ONE (18:35)
[2023-02-22 18:39] LABS: HEMATOCRIT 35.6 % (35.4-49); HEMOGLOBIN 12.2 GM/dL (11.7-16.9); MCH 30.2 pg (25.7-33.7); MCHC 34.4 g/dl (32.0-35.9); MEAN CELL VOLUME 87.9 fl (80-96); MEAN PLT VOLUME 9.7 fl (7.5-11.1); PLATELET COUNT 398 10^3/uL (134-434); RBC 4.05 M/mm3 (4.00-5.60); RDW 19.3 % (11.9-15.9); WHITE BLOOD COUNT 8.6 K/mm3 (4.0-10.0)
[2023-02-22] MEDS ORDERED: CEFTRIAXONE 1 GM/50 ML BAG ONE (18:47)
[2023-02-22 18:48] LABS: INR 1.8 (0.83-1.09); PROTHROMBIN TIME (PATIENT) 20.8 SEC (9.7-13.0)
[2023-02-22 18:52] LABS: ACTIVATED PTT 41.8 SECONDS (25.2-36.5)
[2023-02-22 18:57] LABS: CHLORIDE 74 mmol/L (98-107)
[2023-02-22 19:00] LABS: ALBUMIN 2.4 g/dl (3.4-5.0); BLOOD UREA NITROGEN 21.3 mg/dL (7-18); CALCIUM 8.7 mg/dL (8.5-10.1); CO2 22 mmol/L (21-32); GLUCOSE,RANDOM 100 mg/dL (74-106)
[2023-02-22 19:02] LABS: CREATININE 1.6 mg/dL (0.55-1.3)
[2023-02-22 19:04] LABS: BILIRUBIN,TOTAL 7.3 mg/dL (0.2-1); SGOT/AST 469 U/L (15-37); SGPT/ALT 65 U/L (13-61)
[2023-02-22 19:05] LABS: ALK PHOS 945 U/L (45-117)
[2023-02-22] MEDS ORDERED: SODIUM CHLORIDE 0.9% 500 ML INFUS.BAG IV ONE ×2 (19:19→19:32)
[2023-02-22 19:20] LABS: ANION GAP 13 MMOL/L (8-16); LACTIC ACID 2.9 mmol/L (0.4-2.0); SODIUM 109 mmol/L (136-145)
[2023-02-22] MEDS ORDERED: SODIUM CHLORIDE 3% 500 ML/500 ML INFUS.BAG IV ONE (19:46)
[2023-02-22 22:14] LABS: CHLORIDE 74 mmol/L (98-107)
[2023-02-22 22:15] LABS: CALCIUM 8.7 mg/dL (8.5-10.1)
[2023-02-22 22:16] LABS: CO2 25 mmol/L (21-32); GLUCOSE,RANDOM 87 mg/dL (74-106)
[2023-02-22 22:19] LABS: CREATININE 1.6 mg/dL (0.55-1.3)
[2023-02-22 22:24] LABS: ANION GAP 13 MMOL/L (8-16); SODIUM 111 mmol/L (136-145)
[2023-02-22 23:41] LABS: CALCIUM 8.2 mg/dL (8.5-10.1)
[2023-02-22 23:43] LABS: BLOOD UREA NITROGEN 21.2 mg/dL (7-18); BLOOD UREA NITROGEN 21.8 mg/dL (7-18); CALCIUM 7.8 mg/dL (8.5-10.1); MAGNESIUM 1.7 mg/dL (1.8-2.4)
[2023-02-22 23:45] LABS: CREATININE 1.4 mg/dL (0.55-1.3); CREATININE 1.5 mg/dL (0.55-1.3)
[2023-02-22] MEDS ORDERED: DEXTROSE 5%-WATER - 1,000 ML IV SCH (23:45)
[2023-02-22] MEDS ORDERED: DESMOPRESSIN ACETATE 4 MCG/ML AMP IVPB ONE (23:53)
[2023-02-23 01:03] LABS: CHLORIDE 78 mmol/L (98-107)
[2023-02-23 01:04] LABS: CALCIUM 8.7 mg/dL (8.5-10.1)
[2023-02-23 01:05] LABS: BLOOD UREA NITROGEN 22.9 mg/dL (7-18); CO2 21 mmol/L (21-32); GLUCOSE,RANDOM 96 mg/dL (74-106)
[2023-02-23 01:08] LABS: CREATININE 1.5 mg/dL (0.55-1.3)
[2023-02-23 01:37] LABS: ANION GAP 13 MMOL/L (8-16); SODIUM 113 mmol/L (136-145)
[2023-02-23] MEDS ORDERED: ALBUMIN HUMAN 25% 12.5 GM/50 ML VIAL IV STA (02:05)
[2023-02-23] MEDS ORDERED: PHENYLEPHRINE NS PREMIX 50,000 MCG/500 ML BAG CVP SCH (02:15)
[2023-02-23] MEDS: ALBUMIN HUMAN 25% 12.5 GM/50 ML VIAL IV SCH ×4 (03:02→04:34)
[2023-02-23] MEDS ORDERED: SODIUM CHLORIDE 1,000 ML IV SCH (04:45)
[2023-02-23 06:55] LABS: EPI CELLS 3 /uL (0-25.1); HYALINE CASTS 0 /uL (0-3.1); PH,URINE 7.5 (5.0-8.0); URINE APPEARANCE CLEAR; URINE BACTERIA 24 /uL (0-1359); URINE BILIRUBIN 2+ (NEGATIVE); URINE COLOR DK YELLOW; URINE GLUCOSE (UA) TRACE (NEGATIVE); URINE KETONE NEGATIVE (NEGATIVE); URINE LEUK ESTERASE NEGATIVE (NEGATIVE); URINE NITRITE NEGATIVE (NEGATIVE); URINE PROTEIN 4+ (NEGATIVE); URINE RBC 172 /uL (0-23.9); URINE UROBILINOGEN 0.2 mg/dL (0.2-1.0)
[2023-02-23 07:40] LABS: HEMATOCRIT 30.7 % (35.4-49); HEMOGLOBIN 10.6 GM/dL (11.7-16.9); MCH 30.6 pg (25.7-33.7); MCHC 34.5 g/dl (32.0-35.9); MEAN CELL VOLUME 88.7 fl (80-96); MEAN PLT VOLUME 9.6 fl (7.5-11.1); PLATELET COUNT 303 10^3/uL (134-434); RBC 3.47 M/mm3 (4.00-5.60); RDW 18.5 % (11.9-15.9); WHITE BLOOD COUNT 8.9 K/mm3 (4.0-10.0)
[2023-02-23 07:46] LABS: INR 2.18 (0.83-1.09); PROTHROMBIN TIME (PATIENT) 25.1 SEC (9.7-13.0)
[2023-02-23 07:50] LABS: CHLORIDE 77 mmol/L (98-107)
[2023-02-23 07:52] LABS: CALCIUM 8.2 mg/dL (8.5-10.1)
[2023-02-23 07:53] LABS: BLOOD UREA NITROGEN 23.6 mg/dL (7-18); CO2 21 mmol/L (21-32); GLUCOSE,RANDOM 76 mg/dL (74-106); MAGNESIUM 1.8 mg/dL (1.8-2.4)
[2023-02-23 07:56] LABS: BILIRUBIN,DIRECT 4.7 mg/dL (0.0-0.2); CREATININE 1.6 mg/dL (0.55-1.3); PHOSPHOROUS 3.5 mg/dL (2.5-4.9); SGOT/AST 291 U/L (15-37); SGPT/ALT 43 U/L (13-61)
[2023-02-23 07:58] LABS: BILIRUBIN,TOTAL 5.4 mg/dL (0.2-1); TOT PROT 5.4 g/dl (6.4-8.2)
[2023-02-23 08:14] LABS: ALK PHOS 627 U/L (45-117); ANION GAP 14 MMOL/L (8-16); SODIUM 112 mmol/L (136-145)
[2023-02-23 08:14] LABS: CREATININE, URINE RANDOM < 13.0 mg/dL (30-150)
[2023-02-23 09:31] LABS: BF WBC & OTHER NUCLEATED CELLS 142 /mm3
[2023-02-23] MEDS ORDERED: CEFTRIAXONE 1 GM in DEXTROSE 5%-WATER - 50 ML IVPB SCH (10:00)
[2023-02-23] MEDS: HEPARIN NA (PORCINE) 5,000 UNITS/ML 1ML VIAL SQ SCH ×2 (10:01→21:51)
[2023-02-23] MEDS: SPIRONOLACTONE 25 MG TABLET PO SCH (10:01)
[2023-02-23] MEDS: PANTOPRAZOLE SODIUM 40 MG VIAL IVPUSH SCH (10:01)
[2023-02-23] MEDS: TAMSULOSIN HCL 0.4 MG CAP PO SCH (10:01)
[2023-02-23 10:14] LABS: BODY FLUID MESOTHELIAL 2 %; BODY FLUID MONOCYTE 33 %
[2023-02-23 10:26] LABS: URINE WBC 149.9 /uL (0-25.8)
[2023-02-23] MEDS ORDERED: VASOPRESSIN 20 UNITS/ML VIAL IV ONE (14:06)
[2023-02-23] MEDS ORDERED: SODIUM CHLORIDE 500 ML IV STA (14:11)
[2023-02-23] MEDS ORDERED: VASOPRESSIN 40 UNITS/100 ML BAG IV SCH (14:15)
[2023-02-23] MEDS ORDERED: MIDAZOLAM HCL 2 MG/2 ML SINGLE DOSE VIAL IVPUSH ONE (14:29)
[2023-02-23] MEDS ORDERED: VASOPRESSIN 40 UNITS in SODIUM CHLORIDE 100 ML IVPB SCH (14:30)
[2023-02-23] MEDS: INSULIN SLIDING SCALE (NOVOLOG) 1 VIAL SQ SCH ×2 (18:05→21:51)
[2023-02-23 19:00] LABS: CHLORIDE 82 mmol/L (98-107)
[2023-02-23 19:01] LABS: BLOOD UREA NITROGEN 26.9 mg/dL (7-18); CALCIUM 7.9 mg/dL (8.5-10.1); CO2 16 mmol/L (21-32); GLUCOSE,RANDOM 90 mg/dL (74-106)
[2023-02-23 19:05] LABS: ANION GAP 16 MMOL/L (8-16); SODIUM 113 mmol/L (136-145)
[2023-02-23] MEDS ORDERED: NOREPINEPHRINE BITARTRATE 16,000 MCG in SODIUM CHLORIDE 484 ML IV SCH (19:45)
[2023-02-23] MEDS: NOREPINEPHRINE BITARTRATE 16,000 MCG in SODIUM CHLORIDE 484 ML IV SCH (19:51)
[2023-02-23] MEDS ORDERED: SODIUM BICARBONATE 8.4% 50 MEQ/50 ML VIAL IVPUSH ONE (19:53)
[2023-02-23] MEDS ORDERED: SODIUM CHLORIDE 3% 500 ML/500 ML INFUS.BAG IV ONE (19:53)
[2023-02-24 00:39] LABS: CHLORIDE 83 mmol/L (98-107)
[2023-02-24 00:41] LABS: CO2 20 mmol/L (21-32); GLUCOSE,RANDOM 117 mg/dL (74-106)
[2023-02-24 00:57] LABS: ANION GAP 14 MMOL/L (8-16); SODIUM 117 mmol/L (136-145)
[2023-02-24] MEDS: INSULIN SLIDING SCALE (NOVOLOG) 1 VIAL SQ SCH ×4 (06:25→21:26)
[2023-02-24 07:05] LABS: HEMOGLOBIN 9.8 GM/dL (11.7-16.9); MCH 30.9 pg (25.7-33.7); MEAN CELL VOLUME 88.4 fl (80-96); MEAN PLT VOLUME 9.7 fl (7.5-11.1); PLATELET COUNT 305 10^3/uL (134-434); RBC 3.17 M/mm3 (4.00-5.60)
[2023-02-24 07:12] LABS: INR 2.35 (0.83-1.09)
[2023-02-24 07:25] LABS: CALCIUM 8.1 mg/dL (8.5-10.1)
[2023-02-24 07:26] LABS: BLOOD UREA NITROGEN 31.4 mg/dL (7-18)
[2023-02-24 07:29] LABS: CREATININE 1.9 mg/dL (0.55-1.3)
[2023-02-24 07:31] LABS: BILIRUBIN,TOTAL 5.2 mg/dL (0.2-1); TOT PROT 4.8 g/dl (6.4-8.2)
[2023-02-24 07:45] LABS: ALBUMIN 2.3 g/dl (3.4-5.0)
[2023-02-24] MEDS: HEPARIN NA (PORCINE) 5,000 UNITS/ML 1ML VIAL SQ SCH ×2 (09:13→21:26)
[2023-02-24] MEDS: TAMSULOSIN HCL 0.4 MG CAP PO SCH (09:13)
[2023-02-24] MEDS: PANTOPRAZOLE SODIUM 40 MG VIAL IVPUSH SCH (09:13)
[2023-02-24] MEDS: SPIRONOLACTONE 25 MG TABLET PO SCH (09:13)
[2023-02-24] MEDS ORDERED: PHYTONADIONE 5 MG TABLET PO ONE (09:46)
[2023-02-24] MEDS: VASOPRESSIN 40 UNITS/100 ML BAG IV SCH (15:19)
[2023-02-24 16:17] VITALS: BMI 26.4
[2023-02-24 16:24] LABS: CHLORIDE 84 mmol/L (98-107)
[2023-02-24 16:25] LABS: CALCIUM 8.3 mg/dL (8.5-10.1)
[2023-02-24 16:26] LABS: BLOOD UREA NITROGEN 32.7 mg/dL (7-18); CO2 19 mmol/L (21-32); GLUCOSE,RANDOM 139 mg/dL (74-106)
[2023-02-24 16:29] LABS: CREATININE 2.2 mg/dL (0.55-1.3)
[2023-02-24 16:31] LABS: ANION GAP 16 MMOL/L (8-16); SODIUM 119 mmol/L (136-145)
[2023-02-24] MEDS: NOREPINEPHRINE BITARTRATE 16,000 MCG in SODIUM CHLORIDE 484 ML IV SCH (20:00)
[2023-02-24 20:57] LABS: CHLORIDE 83 mmol/L (98-107)
[2023-02-24 20:59] LABS: BLOOD UREA NITROGEN 34.2 mg/dL (7-18); CALCIUM 8.2 mg/dL (8.5-10.1); CO2 18 mmol/L (21-32); GLUCOSE,RANDOM 165 mg/dL (74-106)
[2023-02-24 21:08] LABS: ANION GAP 14 MMOL/L (8-16); SODIUM 116 mmol/L (136-145)
[2023-02-24] MEDS ORDERED: SODIUM CHLORIDE 3% 500 ML/500 ML INFUS.BAG IV ONE (21:12)
[2023-02-25 01:17] LABS: CALCIUM 8.1 mg/dL (8.5-10.1)
[2023-02-25 01:18] LABS: BLOOD UREA NITROGEN 36.5 mg/dL (7-18)
[2023-02-25 01:21] LABS: CREATININE 2.1 mg/dL (0.55-1.3)
[2023-02-25] MEDS: INSULIN SLIDING SCALE (NOVOLOG) 1 VIAL SQ SCH ×4 (06:32→21:46)
[2023-02-25 08:03] LABS: HEMATOCRIT 28.7 % (35.4-49); INR 1.95 (0.83-1.09); MCH 31.1 pg (25.7-33.7); MCHC 34.8 g/dl (32.0-35.9); MEAN CELL VOLUME 89.4 fl (80-96); MEAN PLT VOLUME 9.4 fl (7.5-11.1); PLATELET COUNT 319 10^3/uL (134-434); PROTHROMBIN TIME (PATIENT) 22.5 SEC (9.7-13.0); RBC 3.21 M/mm3 (4.00-5.60); RDW 18.9 % (11.9-15.9); WHITE BLOOD COUNT 10.3 K/mm3 (4.0-10.0)
[2023-02-25 08:06] LABS: ACTIVATED PTT 39.1 SECONDS (25.2-36.5)
[2023-02-25 08:52] LABS: ALBUMIN 2.4 g/dl (3.4-5.0); BLOOD UREA NITROGEN 37.1 mg/dL (7-18)
[2023-02-25 08:53] LABS: CALCIUM 8.4 mg/dL (8.5-10.1)
[2023-02-25 08:55] LABS: CREATININE 1.9 mg/dL (0.55-1.3); PHOSPHOROUS 3.9 mg/dL (2.5-4.9)
[2023-02-25 08:57] LABS: BILIRUBIN,TOTAL 5.8 mg/dL (0.2-1); TOT PROT 5.1 g/dl (6.4-8.2)
[2023-02-25] MEDS: TAMSULOSIN HCL 0.4 MG CAP PO SCH (09:36)
[2023-02-25] MEDS: HEPARIN NA (PORCINE) 5,000 UNITS/ML 1ML VIAL SQ SCH ×2 (09:36→21:45)
[2023-02-25] MEDS: PANTOPRAZOLE SODIUM 40 MG VIAL IVPUSH SCH (09:38)
[2023-02-25] MEDS ORDERED: PHYTONADIONE 5 MG TABLET PO ONE (13:30)
[2023-02-25 21:48] LABS: BLOOD UREA NITROGEN 34.8 mg/dL (7-18); CALCIUM 8.5 mg/dL (8.5-10.1)
[2023-02-25 21:51] LABS: CREATININE 1.3 mg/dL (0.55-1.3)
[2023-02-25] MEDS: NOREPINEPHRINE BITARTRATE 16,000 MCG in SODIUM CHLORIDE 484 ML IV SCH (22:31)
[2023-02-26] MEDS: VASOPRESSIN 40 UNITS/100 ML BAG IV SCH (01:13)
[2023-02-26] MEDS: INSULIN SLIDING SCALE (NOVOLOG) 1 VIAL SQ SCH ×4 (06:26→22:23)
[2023-02-26 07:37] LABS: HEMATOCRIT 28.9 % (35.4-49); HEMOGLOBIN 10.1 GM/dL (11.7-16.9); MCH 30.8 pg (25.7-33.7); MCHC 34.9 g/dl (32.0-35.9); MEAN CELL VOLUME 88.4 fl (80-96); MEAN PLT VOLUME 9.4 fl (7.5-11.1); PLATELET COUNT 279 10^3/uL (134-434); RBC 3.27 M/mm3 (4.00-5.60); RDW 18.7 % (11.9-15.9); WHITE BLOOD COUNT 8.3 K/mm3 (4.0-10.0)
[2023-02-26 07:40] LABS: INR 1.79 (0.83-1.09); PROTHROMBIN TIME (PATIENT) 20.7 SEC (9.7-13.0)
[2023-02-26 07:42] LABS: ACTIVATED PTT 42.6 SECONDS (25.2-36.5)
[2023-02-26 08:04] LABS: CALCIUM 8.6 mg/dL (8.5-10.1)
[2023-02-26 08:05] LABS: MAGNESIUM 1.8 mg/dL (1.8-2.4)
[2023-02-26 08:06] LABS: BLOOD UREA NITROGEN 31.2 mg/dL (7-18)
[2023-02-26 08:08] LABS: CREATININE 1.1 mg/dL (0.55-1.3); PHOSPHOROUS 2.5 mg/dL (2.5-4.9)
[2023-02-26] MEDS: PANTOPRAZOLE SODIUM 40 MG VIAL IVPUSH SCH (09:28)
[2023-02-26] MEDS: TAMSULOSIN HCL 0.4 MG CAP PO SCH (09:28)
[2023-02-26] MEDS: HEPARIN NA (PORCINE) 5,000 UNITS/ML 1ML VIAL SQ SCH ×2 (09:28→22:23)
[2023-02-26 21:04] LABS: CALCIUM 8.5 mg/dL (8.5-10.1)
[2023-02-26 21:05] LABS: BLOOD UREA NITROGEN 24.4 mg/dL (7-18)
[2023-02-26 21:08] LABS: CREATININE 0.9 mg/dL (0.55-1.3)
[2023-02-27] MEDS: VASOPRESSIN 40 UNITS/100 ML BAG IV SCH (00:22)
[2023-02-27] MEDS: NOREPINEPHRINE BITARTRATE 16,000 MCG in SODIUM CHLORIDE 484 ML IV SCH (04:54)
[2023-02-27] MEDS: INSULIN SLIDING SCALE (NOVOLOG) 1 VIAL SQ SCH ×4 (06:48→21:59)
[2023-02-27 07:15] LABS: HEMATOCRIT 27.7 % (35.4-49); HEMOGLOBIN 9.7 GM/dL (11.7-16.9); MCH 30.9 pg (25.7-33.7); MCHC 35.1 g/dl (32.0-35.9); MEAN PLT VOLUME 8.8 fl (7.5-11.1); PLATELET COUNT 216 10^3/uL (134-434); RBC 3.15 M/mm3 (4.00-5.60); WHITE BLOOD COUNT 7.2 K/mm3 (4.0-10.0)
[2023-02-27 07:28] LABS: CALCIUM 8.8 mg/dL (8.5-10.1); MAGNESIUM 1.5 mg/dL (1.8-2.4)
[2023-02-27 07:29] LABS: BLOOD UREA NITROGEN 20.6 mg/dL (7-18)
[2023-02-27 07:32] LABS: CREATININE 0.6 mg/dL (0.55-1.3)
[2023-02-27] MEDS ORDERED: MAGNESIUM SULF 50% (8.12 MEQ/2 ML-1 GM VIAL) IVPB ONE (07:57)
[2023-02-27] MEDS ORDERED: NAPH,MB-DB/K PH,MBDB POWDER PACKET PO ONE (07:57)
[2023-02-27] MEDS: TAMSULOSIN HCL 0.4 MG CAP PO SCH (09:26)
[2023-02-27] MEDS: LACTULOSE 20 GM/30 ML UDC (FOR ORAL USE ONLY) PO SCH (09:27)
[2023-02-27] MEDS: HEPARIN NA (PORCINE) 5,000 UNITS/ML 1ML VIAL SQ SCH ×2 (09:27→21:55)
[2023-02-27] MEDS: PANTOPRAZOLE SODIUM 40 MG VIAL IVPUSH SCH (09:27)
[2023-02-27] MEDS: HYDROCORTISONE SOD SUCCINATE 100 MG/2 ML VIAL IVPUSH SCH ×2 (15:14→21:57)
[2023-02-28] MEDS: VASOPRESSIN 40 UNITS/100 ML BAG IV SCH (01:07)
[2023-02-28] MEDS: HYDROCORTISONE SOD SUCCINATE 100 MG/2 ML VIAL IVPUSH SCH ×3 (05:21→21:14)
[2023-02-28] MEDS: INSULIN SLIDING SCALE (NOVOLOG) 1 VIAL SQ SCH ×4 (06:52→21:14)
[2023-02-28 07:40] LABS: BLOOD UREA NITROGEN 20.3 mg/dL (7-18); CALCIUM 9.1 mg/dL (8.5-10.1); MAGNESIUM 1.7 mg/dL (1.8-2.4)
[2023-02-28 07:42] LABS: HEMATOCRIT 29.8 % (35.4-49); HEMOGLOBIN 10.2 GM/dL (11.7-16.9); MCH 30.5 pg (25.7-33.7); MCHC 34.4 g/dl (32.0-35.9); MEAN CELL VOLUME 88.6 fl (80-96); MEAN PLT VOLUME 9.2 fl (7.5-11.1); PLATELET COUNT 206 10^3/uL (134-434); RBC 3.36 M/mm3 (4.00-5.60); WHITE BLOOD COUNT 6.6 K/mm3 (4.0-10.0)
[2023-02-28 07:44] LABS: CREATININE 0.6 mg/dL (0.55-1.3); PHOSPHOROUS 2.5 mg/dL (2.5-4.9)
[2023-02-28] MEDS: TAMSULOSIN HCL 0.4 MG CAP PO SCH (09:52)
[2023-02-28] MEDS: HEPARIN NA (PORCINE) 5,000 UNITS/ML 1ML VIAL SQ SCH ×2 (09:53→21:14)
[2023-02-28] MEDS: LACTULOSE 20 GM/30 ML UDC (FOR ORAL USE ONLY) PO SCH (09:53)
[2023-02-28] MEDS: PANTOPRAZOLE SODIUM 40 MG VIAL IVPUSH SCH (09:53)
[2023-02-28] MEDS ORDERED: MAGNESIUM SULF 50% (8.12 MEQ/2 ML-1 GM VIAL) IVPB ONE (13:49)
[2023-02-28] MEDS ORDERED: ALBUMIN HUMAN 25% 12.5 GM/50 ML VIAL IV STA (13:58)
[2023-02-28] MEDS: ALBUMIN HUMAN 25% 12.5 GM/50 ML VIAL IV SCH ×5 (15:21→17:09)
[2023-02-28 15:50] LABS: BF WBC & OTHER NUCLEATED CELLS 655 /mm3
[2023-02-28 15:51] LABS: BODY FLUID MONOCYTE 16 %
[2023-03-01] MEDS: HYDROCORTISONE SOD SUCCINATE 100 MG/2 ML VIAL IVPUSH SCH ×3 (06:10→21:26)
[2023-03-01] MEDS: INSULIN SLIDING SCALE (NOVOLOG) 1 VIAL SQ SCH ×4 (06:19→21:44)
[2023-03-01 07:29] LABS: HEMATOCRIT 29.6 % (35.4-49); HEMOGLOBIN 10.3 GM/dL (11.7-16.9); MCHC 34.6 g/dl (32.0-35.9); MEAN CELL VOLUME 89.4 fl (80-96); MEAN PLT VOLUME 9.2 fl (7.5-11.1); PLATELET COUNT 204 10^3/uL (134-434); RBC 3.31 M/mm3 (4.00-5.60); RDW 19.4 % (11.9-15.9); WHITE BLOOD COUNT 7.7 K/mm3 (4.0-10.0)
[2023-03-01 08:29] LABS: BLOOD UREA NITROGEN 25.2 mg/dL (7-18); CALCIUM 9.1 mg/dL (8.5-10.1); CREATININE 0.7 mg/dL (0.55-1.3); PHOSPHOROUS 2.5 mg/dL (2.5-4.9)
[2023-03-01] MEDS: PANTOPRAZOLE SODIUM 40 MG VIAL IVPUSH SCH (09:26)
[2023-03-01] MEDS: TAMSULOSIN HCL 0.4 MG CAP PO SCH (09:26)
[2023-03-01] MEDS: LACTULOSE 20 GM/30 ML UDC (FOR ORAL USE ONLY) PO SCH (09:26)
[2023-03-01] MEDS: HEPARIN NA (PORCINE) 5,000 UNITS/ML 1ML VIAL SQ SCH ×2 (09:26→21:26)
[2023-03-02] MEDS: HYDROCORTISONE SOD SUCCINATE 100 MG/2 ML VIAL IVPUSH SCH ×3 (06:21→22:17)
[2023-03-02] MEDS: INSULIN SLIDING SCALE (NOVOLOG) 1 VIAL SQ SCH ×4 (06:21→22:17)
[2023-03-02 07:43] LABS: BASO % 0.4 % (0-2.0); HEMATOCRIT 29.9 % (35.4-49); HEMOGLOBIN 10.4 GM/dL (11.7-16.9); LYMPH % 9.9 % (8-40); MCH 31.2 pg (25.7-33.7); MCHC 34.8 g/dl (32.0-35.9); MEAN CELL VOLUME 89.6 fl (80-96); MEAN PLT VOLUME 9.3 fl (7.5-11.1); MONO % 9.6 % (3.8-10.2); NEUT % 80.1 % (42.8-82.8); PLATELET COUNT 198 10^3/uL (134-434); RBC 3.34 M/mm3 (4.00-5.60); RDW 19.5 % (11.9-15.9); WHITE BLOOD COUNT 8.2 K/mm3 (4.0-10.0)
[2023-03-02 07:57] LABS: CALCIUM 8.9 mg/dL (8.5-10.1)
[2023-03-02 07:58] LABS: ALBUMIN 2.4 g/dl (3.4-5.0); BLOOD UREA NITROGEN 27.3 mg/dL (7-18); MAGNESIUM 1.8 mg/dL (1.8-2.4)
[2023-03-02 08:00] LABS: BILIRUBIN,DIRECT 4.9 mg/dL (0.0-0.2)
[2023-03-02 08:01] LABS: CREATININE 0.7 mg/dL (0.55-1.3); PHOSPHOROUS 2.8 mg/dL (2.5-4.9)
[2023-03-02 08:02] LABS: BILIRUBIN,TOTAL 5.6 mg/dL (0.2-1); TOT PROT 5.1 g/dl (6.4-8.2)
[2023-03-02 08:04] LABS: INR 1.58 (0.83-1.09); PROTHROMBIN TIME (PATIENT) 18.2 SEC (9.7-13.0)
[2023-03-02 08:07] LABS: ACTIVATED PTT 34.7 SECONDS (25.2-36.5)
[2023-03-02] MEDS: LACTULOSE 20 GM/30 ML UDC (FOR ORAL USE ONLY) PO SCH (09:22)
[2023-03-02] MEDS: TAMSULOSIN HCL 0.4 MG CAP PO SCH (09:22)
[2023-03-02] MEDS: PANTOPRAZOLE SODIUM 40 MG VIAL IVPUSH SCH (09:23)
[2023-03-02] MEDS ORDERED: ALBUMIN HUMAN 25% 12.5 GM/50 ML VIAL IV STA (19:17)
[2023-03-03] MEDS: INSULIN SLIDING SCALE (NOVOLOG) 1 VIAL SQ SCH ×4 (06:50→21:57)
[2023-03-03] MEDS: HYDROCORTISONE SOD SUCCINATE 100 MG/2 ML VIAL IVPUSH SCH ×3 (06:50→21:52)
[2023-03-03] MEDS: PANTOPRAZOLE SODIUM 40 MG VIAL IVPUSH SCH (09:45)
[2023-03-03] MEDS: LACTULOSE 20 GM/30 ML UDC (FOR ORAL USE ONLY) PO SCH (09:45)
[2023-03-03] MEDS: TAMSULOSIN HCL 0.4 MG CAP PO SCH (09:45)
[2023-03-03] MEDS ORDERED: INSULIN (NOVOLOG) ASPART 100 UNITS/ML 10ML VIAL ONE ×2 (11:39→21:35)
[2023-03-04] MEDS ORDERED: INSULIN (NOVOLOG) ASPART 100 UNITS/ML 10ML VIAL ONE ×3 (05:52→21:28)
[2023-03-04] MEDS: INSULIN SLIDING SCALE (NOVOLOG) 1 VIAL SQ SCH ×4 (06:02→21:57)
[2023-03-04] MEDS: HYDROCORTISONE SOD SUCCINATE 100 MG/2 ML VIAL IVPUSH SCH ×3 (06:02→21:59)
[2023-03-04] MEDS: LACTULOSE 20 GM/30 ML UDC (FOR ORAL USE ONLY) PO SCH (10:13)
[2023-03-04] MEDS: TAMSULOSIN HCL 0.4 MG CAP PO SCH (10:13)
[2023-03-04] MEDS: PANTOPRAZOLE SODIUM 40 MG VIAL IVPUSH SCH (10:13)
[2023-03-05] MEDS ORDERED: INSULIN (NOVOLOG) ASPART 100 UNITS/ML 10ML VIAL ONE ×3 (06:02→22:34)
[2023-03-05] MEDS: HYDROCORTISONE SOD SUCCINATE 100 MG/2 ML VIAL IVPUSH SCH ×3 (06:10→22:40)
[2023-03-05] MEDS: INSULIN SLIDING SCALE (NOVOLOG) 1 VIAL SQ SCH ×4 (06:20→22:40)
[2023-03-05 08:07] LABS: BASO % 0.2 % (0-2.0); HEMATOCRIT 32.7 % (35.4-49); HEMOGLOBIN 11.3 GM/dL (11.7-16.9); LYMPH % 9.2 % (8-40); MCH 31.5 pg (25.7-33.7); MCHC 34.7 g/dl (32.0-35.9); MEAN CELL VOLUME 90.8 fl (80-96); MEAN PLT VOLUME 10.1 fl (7.5-11.1); MONO % 5.5 % (3.8-10.2); NEUT % 85.1 % (42.8-82.8); PLATELET COUNT 269 10^3/uL (134-434); RDW 19.6 % (11.9-15.9); WHITE BLOOD COUNT 10.7 K/mm3 (4.0-10.0)
[2023-03-05 08:18] LABS: CALCIUM 8.8 mg/dL (8.5-10.1)
[2023-03-05 08:19] LABS: ALBUMIN 2.4 g/dl (3.4-5.0); BLOOD UREA NITROGEN 26.2 mg/dL (7-18)
[2023-03-05 08:22] LABS: CREATININE 0.6 mg/dL (0.55-1.3)
[2023-03-05 08:24] LABS: BILIRUBIN,TOTAL 7.2 mg/dL (0.2-1); TOT PROT 5.4 g/dl (6.4-8.2)
[2023-03-05] MEDS: TAMSULOSIN HCL 0.4 MG CAP PO SCH (09:39)
[2023-03-05] MEDS: LACTULOSE 20 GM/30 ML UDC (FOR ORAL USE ONLY) PO SCH (09:40)
[2023-03-05] MEDS: PANTOPRAZOLE SODIUM 40 MG VIAL IVPUSH SCH (09:40)
[2023-03-05 12:09] LABS: HEMATOCRIT 33.3 % (35.4-49); HEMOGLOBIN 11.4 GM/dL (11.7-16.9); MCH 31.1 pg (25.7-33.7); MCHC 34.1 g/dl (32.0-35.9); MEAN CELL VOLUME 91.2 fl (80-96); MEAN PLT VOLUME 10.5 fl (7.5-11.1); PLATELET COUNT 285 10^3/uL (134-434); RBC 3.65 M/mm3 (4.00-5.60); RDW 19.9 % (11.9-15.9); WHITE BLOOD COUNT 11.1 K/mm3 (4.0-10.0)
[2023-03-06] MEDS ORDERED: INSULIN (NOVOLOG) ASPART 100 UNITS/ML 10ML VIAL ONE (06:51)
[2023-03-06] MEDS: HYDROCORTISONE SOD SUCCINATE 100 MG/2 ML VIAL IVPUSH SCH ×3 (07:07→22:31)
[2023-03-06] MEDS: INSULIN SLIDING SCALE (NOVOLOG) 1 VIAL SQ SCH ×4 (07:08→22:31)
[2023-03-06] MEDS: PANTOPRAZOLE 40 MG TABLET PO SCH (09:58)
[2023-03-06] MEDS: LACTULOSE 20 GM/30 ML UDC (FOR ORAL USE ONLY) PO SCH (09:58)
[2023-03-06] MEDS: TAMSULOSIN HCL 0.4 MG CAP PO SCH (09:58)
[2023-03-06 10:16] LABS: ALBUMIN 2.6 g/dl (3.4-5.0); BLOOD UREA NITROGEN 27.4 mg/dL (7-18); CALCIUM 9.1 mg/dL (8.5-10.1)
[2023-03-06 10:17] LABS: CREATININE 0.8 mg/dL (0.55-1.3)
[2023-03-06 10:18] LABS: BILIRUBIN,TOTAL 7.3 mg/dL (0.2-1); TOT PROT 5.7 g/dl (6.4-8.2)
[2023-03-06] MEDS: ALBUMIN HUMAN 25% 12.5 GM/50 ML VIAL IV SCH ×3 (13:45→14:34)
[2023-03-06 20:06] LABS: BASO % 0.2 % (0-2.0); HEMATOCRIT 29.9 % (35.4-49); LYMPH % 10.9 % (8-40); MCH 31.3 pg (25.7-33.7); MCHC 33.5 g/dl (32.0-35.9); MEAN CELL VOLUME 93.5 fl (80-96); MEAN PLT VOLUME 10.1 fl (7.5-11.1); MONO % 6.4 % (3.8-10.2); NEUT % 82.5 % (42.8-82.8); PLATELET COUNT 263 10^3/uL (134-434); RDW 20.5 % (11.9-15.9); WHITE BLOOD COUNT 10.2 K/mm3 (4.0-10.0)
[2023-03-06 20:29] LABS: ALBUMIN 2.9 g/dl (3.4-5.0)
[2023-03-06 20:30] LABS: BLOOD UREA NITROGEN 27.2 mg/dL (7-18)
[2023-03-06 20:32] LABS: CREATININE 0.7 mg/dL (0.55-1.3)
[2023-03-06 20:34] LABS: BILIRUBIN,TOTAL 5.8 mg/dL (0.2-1); TOT PROT 5.5 g/dl (6.4-8.2)
[2023-03-06 20:38] LABS: ANISOCYTOSIS 1+; MACROCYTOSIS 0; TARGET CELLS 2+
[2023-03-07] MEDS: HYDROCORTISONE SOD SUCCINATE 100 MG/2 ML VIAL IVPUSH SCH ×3 (06:59→22:32)
[2023-03-07] MEDS: INSULIN SLIDING SCALE (NOVOLOG) 1 VIAL SQ SCH ×4 (07:00→22:30)
[2023-03-07] MEDS: PANTOPRAZOLE 40 MG TABLET PO SCH (09:18)
[2023-03-07] MEDS: LACTULOSE 20 GM/30 ML UDC (FOR ORAL USE ONLY) PO SCH (09:18)
[2023-03-07] MEDS: TAMSULOSIN HCL 0.4 MG CAP PO SCH (09:18)
[2023-03-08] MEDS ORDERED: ACETAMINOPHEN 325 MG TABLET (FP) PO ONE (02:06)
[2023-03-08] MEDS: HYDROCORTISONE SOD SUCCINATE 100 MG/2 ML VIAL IVPUSH SCH ×3 (05:47→22:40)
[2023-03-08] MEDS: INSULIN SLIDING SCALE (NOVOLOG) 1 VIAL SQ SCH ×4 (06:51→23:07)
[2023-03-08] MEDS: PANTOPRAZOLE 40 MG TABLET PO SCH (09:52)
[2023-03-08] MEDS: TAMSULOSIN HCL 0.4 MG CAP PO SCH (09:52)
[2023-03-08] MEDS: LACTULOSE 20 GM/30 ML UDC (FOR ORAL USE ONLY) PO SCH (09:52)
[2023-03-08] MEDS ORDERED: INSULIN (NOVOLOG) ASPART 100 UNITS/ML 10ML VIAL ONE ×3 (11:29→22:35)
[2023-03-09] MEDS: INSULIN SLIDING SCALE (NOVOLOG) 1 VIAL SQ SCH ×4 (07:54→22:02)
[2023-03-09] MEDS: TAMSULOSIN HCL 0.4 MG CAP PO SCH (09:28)
[2023-03-09] MEDS: LACTULOSE 20 GM/30 ML UDC (FOR ORAL USE ONLY) PO SCH (09:29)
[2023-03-09] MEDS: HEPARIN NA (PORCINE) 5,000 UNITS/ML 1ML VIAL SQ SCH ×2 (09:29→22:00)
[2023-03-09] MEDS: PANTOPRAZOLE 40 MG TABLET PO SCH (09:29)
[2023-03-09 10:39] LABS: BASO % 0.2 % (0-2.0); HEMATOCRIT 33.6 % (35.4-49); HEMOGLOBIN 11.3 GM/dL (11.7-16.9); LYMPH % 8.8 % (8-40); MCH 31.3 pg (25.7-33.7); MCHC 33.6 g/dl (32.0-35.9); MEAN CELL VOLUME 93.2 fl (80-96); MEAN PLT VOLUME 10.7 fl (7.5-11.1); MONO % 5.8 % (3.8-10.2); NEUT % 85.2 % (42.8-82.8); PLATELET COUNT 303 10^3/uL (134-434); RBC 3.61 M/mm3 (4.00-5.60); WHITE BLOOD COUNT 11.3 K/mm3 (4.0-10.0)
[2023-03-09 11:05] LABS: BLOOD UREA NITROGEN 30.6 mg/dL (7-18); CALCIUM 8.8 mg/dL (8.5-10.1)
[2023-03-09 11:06] LABS: ALBUMIN 2.5 g/dl (3.4-5.0)
[2023-03-09 11:10] LABS: TOT PROT 5.4 g/dl (6.4-8.2)
[2023-03-09 11:11] LABS: BILIRUBIN,TOTAL 6.2 mg/dL (0.2-1)
[2023-03-09 11:12] LABS: CREATININE 0.7 mg/dL (0.55-1.3)
[2023-03-09] MEDS ORDERED: INSULIN (NOVOLOG) ASPART 100 UNITS/ML 10ML VIAL ONE (12:08)
[2023-03-10] MEDS: INSULIN SLIDING SCALE (NOVOLOG) 1 VIAL SQ SCH ×4 (06:40→22:21)
[2023-03-10 09:07] LABS: BASO % 0.3 % (0-2.0); EOS % 0.1 % (0-4.5); HEMATOCRIT 35.2 % (35.4-49); HEMOGLOBIN 11.9 GM/dL (11.7-16.9); LYMPH % 10.6 % (8-40); MCH 31.4 pg (25.7-33.7); MCHC 33.8 g/dl (32.0-35.9); MEAN PLT VOLUME 11.3 fl (7.5-11.1); MONO % 6.8 % (3.8-10.2); NEUT % 82.2 % (42.8-82.8); PLATELET COUNT 300 10^3/uL (134-434); RBC 3.78 M/mm3 (4.00-5.60); WHITE BLOOD COUNT 9.8 K/mm3 (4.0-10.0)
[2023-03-10] MEDS: ALBUMIN HUMAN 25% 12.5 GM/50 ML VIAL IV SCH ×4 (09:19→11:25)
[2023-03-10] MEDS: HEPARIN NA (PORCINE) 5,000 UNITS/ML 1ML VIAL SQ SCH ×2 (09:20→22:19)
[2023-03-10] MEDS: APALUTAMIDE 60 MG PO SCH (09:34)
[2023-03-10] MEDS: PANTOPRAZOLE 40 MG TABLET PO SCH (09:34)
[2023-03-10] MEDS: TAMSULOSIN HCL 0.4 MG CAP PO SCH (09:34)
[2023-03-10] MEDS: LACTULOSE 20 GM/30 ML UDC (FOR ORAL USE ONLY) PO SCH (09:34)
[2023-03-10 09:43] LABS: CALCIUM 9.4 mg/dL (8.5-10.1)
[2023-03-10 09:44] LABS: ALBUMIN 2.6 g/dl (3.4-5.0); BLOOD UREA NITROGEN 32.2 mg/dL (7-18)
[2023-03-10 09:47] LABS: CREATININE 0.7 mg/dL (0.55-1.3)
[2023-03-10 09:48] LABS: BILIRUBIN,TOTAL 7.8 mg/dL (0.2-1); TOT PROT 5.5 g/dl (6.4-8.2)
[2023-03-10 10:39] LABS: ANISOCYTOSIS 2+; MACROCYTOSIS 1+
[2023-03-11] MEDS: INSULIN SLIDING SCALE (NOVOLOG) 1 VIAL SQ SCH ×4 (06:54→21:31)
[2023-03-11] MEDS: PANTOPRAZOLE 40 MG TABLET PO SCH (09:48)
[2023-03-11] MEDS: HEPARIN NA (PORCINE) 5,000 UNITS/ML 1ML VIAL SQ SCH ×2 (09:48→21:28)
[2023-03-11] MEDS: TAMSULOSIN HCL 0.4 MG CAP PO SCH (09:48)
[2023-03-11] MEDS: LACTULOSE 20 GM/30 ML UDC (FOR ORAL USE ONLY) PO SCH (09:48)
[2023-03-11] MEDS: APALUTAMIDE 60 MG PO SCH (09:49)
[2023-03-12] MEDS: INSULIN SLIDING SCALE (NOVOLOG) 1 VIAL SQ SCH ×4 (06:37→21:07)
[2023-03-12] MEDS: LACTULOSE 20 GM/30 ML UDC (FOR ORAL USE ONLY) PO SCH (09:06)
[2023-03-12] MEDS: TAMSULOSIN HCL 0.4 MG CAP PO SCH (09:06)
[2023-03-12] MEDS: PANTOPRAZOLE 40 MG TABLET PO SCH (09:06)
[2023-03-12] MEDS: APALUTAMIDE 60 MG PO SCH (09:12)
[2023-03-12] MEDS: HEPARIN NA (PORCINE) 5,000 UNITS/ML 1ML VIAL SQ SCH ×2 (09:12→21:06)
[2023-03-12 10:30] LABS: ALBUMIN 3.1 g/dl (3.4-5.0); BLOOD UREA NITROGEN 25.3 mg/dL (7-18); CALCIUM 9.8 mg/dL (8.5-10.1)
[2023-03-12 10:33] LABS: CREATININE 0.7 mg/dL (0.55-1.3)
[2023-03-12 10:34] LABS: TOT PROT 5.7 g/dl (6.4-8.2)
[2023-03-12 10:35] LABS: BILIRUBIN,TOTAL 7.9 mg/dL (0.2-1)
[2023-03-12] MEDS ORDERED: INSULIN (NOVOLOG) ASPART 100 UNITS/ML 10ML VIAL ONE (13:02)
[2023-03-13] MEDS: INSULIN SLIDING SCALE (NOVOLOG) 1 VIAL SQ SCH ×4 (06:06→23:53)
[2023-03-13] MEDS: TAMSULOSIN HCL 0.4 MG CAP PO SCH (08:30)
[2023-03-13] MEDS: LACTULOSE 20 GM/30 ML UDC (FOR ORAL USE ONLY) PO SCH (09:17)
[2023-03-13] MEDS: APALUTAMIDE 60 MG PO SCH (09:17)
[2023-03-13] MEDS: PANTOPRAZOLE 40 MG TABLET PO SCH (09:17)
[2023-03-13] MEDS: HEPARIN NA (PORCINE) 5,000 UNITS/ML 1ML VIAL SQ SCH ×2 (09:17→22:30)
[2023-03-13] MEDS ORDERED: INSULIN (NOVOLOG) ASPART 100 UNITS/ML 10ML VIAL ONE ×2 (10:51→17:33)
[2023-03-14] MEDS: INSULIN SLIDING SCALE (NOVOLOG) 1 VIAL SQ SCH ×4 (06:53→22:22)
[2023-03-14] MEDS: TAMSULOSIN HCL 0.4 MG CAP PO SCH (08:39)
[2023-03-14 09:22] LABS: BASO % 0.6 % (0-2.0); EOS % 0.2 % (0-4.5); HEMATOCRIT 32.6 % (35.4-49); LYMPH % 16.8 % (8-40); MCH 30.9 pg (25.7-33.7); MCHC 33.7 g/dl (32.0-35.9); MEAN CELL VOLUME 91.9 fl (80-96); MEAN PLT VOLUME 10.1 fl (7.5-11.1); MONO % 10.3 % (3.8-10.2); NEUT % 72.1 % (42.8-82.8); PLATELET COUNT 237 10^3/uL (134-434); RBC 3.55 M/mm3 (4.00-5.60); RDW 21.4 % (11.9-15.9); WHITE BLOOD COUNT 6.7 K/mm3 (4.0-10.0)
[2023-03-14] MEDS: APALUTAMIDE 60 MG PO SCH (09:43)
[2023-03-14] MEDS: LACTULOSE 20 GM/30 ML UDC (FOR ORAL USE ONLY) PO SCH (09:43)
[2023-03-14] MEDS: PANTOPRAZOLE 40 MG TABLET PO SCH (09:43)
[2023-03-14] MEDS: HEPARIN NA (PORCINE) 5,000 UNITS/ML 1ML VIAL SQ SCH ×2 (09:43→21:48)
[2023-03-14 09:48] LABS: ALBUMIN 2.6 g/dl (3.4-5.0)
[2023-03-14 09:52] LABS: CREATININE 0.5 mg/dL (0.55-1.3)
[2023-03-14 09:54] LABS: BLOOD UREA NITROGEN 23.7 mg/dL (7-18); CALCIUM 9.7 mg/dL (8.5-10.1); TOT PROT 5.3 g/dl (6.4-8.2)
[2023-03-14 10:04] LABS: ANISOCYTOSIS 1+; MACROCYTOSIS 0
[2023-03-14] MEDS ORDERED: INSULIN (NOVOLOG) ASPART 100 UNITS/ML 10ML VIAL ONE ×2 (16:57→22:19)
[2023-03-15] MEDS: INSULIN SLIDING SCALE (NOVOLOG) 1 VIAL SQ SCH ×4 (06:28→22:22)
[2023-03-15] MEDS: LACTULOSE 20 GM/30 ML UDC (FOR ORAL USE ONLY) PO SCH (09:31)
[2023-03-15] MEDS: APALUTAMIDE 60 MG PO SCH (09:32)
[2023-03-15] MEDS: HEPARIN NA (PORCINE) 5,000 UNITS/ML 1ML VIAL SQ SCH ×2 (09:32→22:14)
[2023-03-15] MEDS: PANTOPRAZOLE 40 MG TABLET PO SCH (09:32)
[2023-03-15] MEDS: TAMSULOSIN HCL 0.4 MG CAP PO SCH (09:32)
[2023-03-15] MEDS ORDERED: INSULIN (NOVOLOG) ASPART 100 UNITS/ML 10ML VIAL ONE (16:33)
[2023-03-16] MEDS: INSULIN SLIDING SCALE (NOVOLOG) 1 VIAL SQ SCH ×4 (07:40→23:29)
[2023-03-16] MEDS: TAMSULOSIN HCL 0.4 MG CAP PO SCH (09:42)
[2023-03-16] MEDS: LACTULOSE 20 GM/30 ML UDC (FOR ORAL USE ONLY) PO SCH (09:43)
[2023-03-16] MEDS: APALUTAMIDE 60 MG PO SCH (09:43)
[2023-03-16] MEDS: PANTOPRAZOLE 40 MG TABLET PO SCH (09:43)
[2023-03-16 10:11] LABS: BASO % 3.4 % (0-2.0); EOS % 0.4 % (0-4.5); HEMATOCRIT 31.4 % (35.4-49); HEMOGLOBIN 10.8 GM/dL (11.7-16.9); LYMPH % 16.8 % (8-40); MCH 31.5 pg (25.7-33.7); MCHC 34.3 g/dl (32.0-35.9); MEAN CELL VOLUME 91.6 fl (80-96); MEAN PLT VOLUME 11.5 fl (7.5-11.1); MONO % 11.5 % (3.8-10.2); NEUT % 67.9 % (42.8-82.8); PLATELET COUNT 244 10^3/uL (134-434); RBC 3.43 M/mm3 (4.00-5.60); RDW 21.3 % (11.9-15.9); WHITE BLOOD COUNT 6.7 K/mm3 (4.0-10.0)
[2023-03-16 10:21] LABS: CALCIUM 9.6 mg/dL (8.5-10.1)
[2023-03-16 10:22] LABS: ALBUMIN 2.5 g/dl (3.4-5.0)
[2023-03-16 10:25] LABS: CREATININE 0.6 mg/dL (0.55-1.3)
[2023-03-16 10:26] LABS: BILIRUBIN,TOTAL 7.1 mg/dL (0.2-1); TOT PROT 5.3 g/dl (6.4-8.2)
[2023-03-16] MEDS ORDERED: FLU VACC QS2022-23(6MOS UP)/PF 60 MCG/0.5 ML SYRINGE IM ONE (12:00)
[2023-03-16] MEDS: ALBUMIN HUMAN 25% 12.5 GM/50 ML VIAL IV SCH ×5 (12:05→15:00)
[2023-03-17 02:55] VITALS: RESP 18
[2023-03-17] MEDS: INSULIN SLIDING SCALE (NOVOLOG) 1 VIAL SQ SCH ×4 (07:57→23:26)
[2023-03-17] MEDS: LACTULOSE 20 GM/30 ML UDC (FOR ORAL USE ONLY) PO SCH (10:07)
[2023-03-17] MEDS: APALUTAMIDE 60 MG PO SCH (10:07)
[2023-03-17] MEDS: TAMSULOSIN HCL 0.4 MG CAP PO SCH (10:07)
[2023-03-17] MEDS: PANTOPRAZOLE 40 MG TABLET PO SCH (10:07)
[2023-03-18] MEDS: INSULIN SLIDING SCALE (NOVOLOG) 1 VIAL SQ SCH ×4 (06:53→22:11)
[2023-03-18] MEDS: LACTULOSE 20 GM/30 ML UDC (FOR ORAL USE ONLY) PO SCH (10:54)
[2023-03-18] MEDS: PANTOPRAZOLE 40 MG TABLET PO SCH (10:54)
[2023-03-18] MEDS: TAMSULOSIN HCL 0.4 MG CAP PO SCH (10:54)
[2023-03-18] MEDS: APALUTAMIDE 60 MG PO SCH (10:58)
[2023-03-19] MEDS: INSULIN SLIDING SCALE (NOVOLOG) 1 VIAL SQ SCH ×4 (06:09→21:51)
[2023-03-19 08:10] LABS: EOS % 0.8 % (0-4.5); HEMATOCRIT 32.1 % (35.4-49); HEMOGLOBIN 10.9 GM/dL (11.7-16.9); LYMPH % 18.3 % (8-40); MCH 31.2 pg (25.7-33.7); MCHC 33.8 g/dl (32.0-35.9); MEAN CELL VOLUME 92.3 fl (80-96); MEAN PLT VOLUME 10.5 fl (7.5-11.1); MONO % 10.8 % (3.8-10.2); NEUT % 69.1 % (42.8-82.8); PLATELET COUNT 244 10^3/uL (134-434); RBC 3.48 M/mm3 (4.00-5.60); RDW 22.1 % (11.9-15.9); WHITE BLOOD COUNT 6.9 K/mm3 (4.0-10.0)
[2023-03-19 08:35] LABS: ALBUMIN 2.9 g/dl (3.4-5.0); BLOOD UREA NITROGEN 32.2 mg/dL (7-18)
[2023-03-19 08:38] LABS: CREATININE 0.8 mg/dL (0.55-1.3)
[2023-03-19 08:39] LABS: TOT PROT 5.4 g/dl (6.4-8.2)
[2023-03-19 08:40] LABS: BILIRUBIN,TOTAL 7.2 mg/dL (0.2-1)
[2023-03-19 09:07] LABS: ANISOCYTOSIS 1+; MACROCYTOSIS 1+; TARGET CELLS 1+
[2023-03-19] MEDS: TAMSULOSIN HCL 0.4 MG CAP PO SCH (10:11)
[2023-03-19] MEDS: LACTULOSE 20 GM/30 ML UDC (FOR ORAL USE ONLY) PO SCH (10:11)
[2023-03-19] MEDS: PANTOPRAZOLE 40 MG TABLET PO SCH (10:11)
[2023-03-19] MEDS: APALUTAMIDE 60 MG PO SCH (10:12)
[2023-03-20 06:00] VITALS: BP 107/62; PULSE 105; TEMP 97.8
[2023-03-20] MEDS: INSULIN SLIDING SCALE (NOVOLOG) 1 VIAL SQ SCH (06:01)
[2023-03-20] MEDS: TAMSULOSIN HCL 0.4 MG CAP PO SCH (09:16)
[2023-03-20] MEDS: PANTOPRAZOLE 40 MG TABLET PO SCH (09:16)
[2023-03-20] MEDS: LACTULOSE 20 GM/30 ML UDC (FOR ORAL USE ONLY) PO SCH (09:16)
[2023-03-20] MEDS: APALUTAMIDE 60 MG PO SCH (09:16)
== END 2023-03-20 10:44 | DRG 952 ==
LOC: JER 16:50 → JERBED 19:33 → JICU 02-23 01:07 → J8W 03-02 18:41
PROVIDERS: ADMIT Internal Medicine Pulmonary Disease; ATTEND Internal Medicine
PROC: 0W9G3ZX Drainage of Peritoneal Cavity, Percutaneous Approach, Diagnostic (ICD-10-PCS; principal; 2023-02-23)
PROC: 05HM33Z Insertion of Infusion Device into Right Internal Jugular Vein, Percutaneous Approach (ICD-10-PCS; 2023-02-23)
PROC: B543ZZA Ultrasonography of Right Jugular Veins, Guidance (ICD-10-PCS; 2023-02-23)
PROC: 0W9G3ZX Drainage of Peritoneal Cavity, Percutaneous Approach, Diagnostic (ICD-10-PCS; 2023-02-28)
PROC: 0W9G3ZZ Drainage of Peritoneal Cavity, Percutaneous Approach (ICD-10-PCS; 2023-03-06)
PROC: 0W9G3ZZ Drainage of Peritoneal Cavity, Percutaneous Approach (ICD-10-PCS; 2023-03-10)
PROC: 0W9G30Z Drainage of Peritoneal Cavity with Drainage Device, Percutaneous Approach (ICD-10-PCS; 2023-03-16)
DX: E87.1 Hypo-osmolality and hyponatremia (principal); I10 Essential (primary) hypertension; E11.9 Type 2 diabetes mellitus without complications; C61 Malignant neoplasm of prostate; N17.9 Acute kidney failure, unspecified; R18.8 Other ascites; K74.60 Unspecified cirrhosis of liver; E86.0 Dehydration; R57.1 Hypovolemic shock; C78.7 Secondary malignant neoplasm of liver and intrahepatic bile duct; G93.41 Metabolic encephalopathy; C79.51 Secondary malignant neoplasm of bone; I95.89 Other hypotension; N40.0 Benign prostatic hyperplasia without lower urinary tract symptoms; D68.9 Coagulation defect, unspecified; Z79.84 Long term (current) use of oral hypoglycemic drugs
CPT/HCPCS: 0241U-QW; 36415; 49418; 70450-TC; 71045-TC-FY; 74176-TC; 74183-TC; 76700-TC; 76942-TC; 80048; 80053; 80076; 81003; 82140; 82378; 82550; 82553; 82570; 82803; 82945; 82962; 83605; 83735; 84100; 84153; 84157; 84300; 85025; 85027; 85610; 85730; 87040; 87070; 87075; 87086; 87205; 88108; 88305-TC; 93005; 93010; 97116-GP; 97163-GP; 99285-25; A9579; C1729; C1769; C1894; C9803-CS; J1644; J3490; P9047; Q2036; U0003; U0005